=== PATIENT | male | born 1960 | race Caucasian/White ===

== ENCOUNTER 2017-03-22 13:55 | Emergency (ER) | payer SELFPAY ==
[~2017-03-22] VITALS: Ht 172.7 cm; Wt 59.7 kg
[~2017-03-22 13:55] MED LIST: LISINOPRIL10 MG PO; NOHOMEMEDS; ULTRAM50 MG PO
[2017-03-22 19:13] VITALS: BP 123/80
== END 2017-03-22 19:15 | disposition home or self-care (01) ==
LOC: EME → EDBD 13:55 → EME 19:15
DX: F10.129 Alcohol abuse with intoxication, unspecified (principal); F17.200 Nicotine dependence, unspecified, uncomplicated
CPT/HCPCS: 99281; 99285

== ENCOUNTER 2018-01-30 18:56 | Emergency (ER) | payer OTHER ==
[~2018-01-30] VITALS: Ht 170.2 cm; Wt 68.2 kg
[2018-01-30 19:41] LABS: HEMATOCRIT 46.1 % (38.0-50.0); HEMOGLOBIN 16.1 G/DL (12.5-16.6); MCH 34.2 PG (29.0-34.0); MCHC 34.9 G/DL (30.0-36.0); MCV 97.9 FL (86-99); PLATELET COUNT 280 K/uL (156-360); RBC DIS.WIDTH-CV 14.5 % (11.8-14.6); RBC DIS.WIDTH-SD 51.9 % (39-53); RED BLOOD COUNT 4.71 M/uL (4.00-5.50); WHITE BLOOD COUNT 9.5 K/uL (4.1-10.2)
[2018-01-30 19:53] LABS: CHLORIDE 107 mEq/L (99-109)
[2018-01-30 19:54] LABS: SODIUM 142 mEq/L (136-147)
[2018-01-30 19:55] LABS: GLUCOSE 75 mg/dL (70-99)
[2018-01-30 19:58] LABS: SERUM ETHYL ALCOHOL 403 mg/dL
[2018-01-30 19:59] LABS: CREATININE 0.8 mg/dL (0.6-1.3); GFR ESTIMATE (CALCULATED) > 59 mL/min/ (58.99-99999)
[2018-01-30 20:00] LABS: UREA NITROGEN (BUN) 7 mg/dL (9-23)
[2018-01-30 20:12] LABS: AMPHETAMINE NEGATIVE (500 ng/mL); BARBITURATES NEGATIVE (200 ng/mL); BENZODIAZEPINES NEGATIVE (150 ng/mL); BUPRENORPHINE NEGATIVE (10 ng/mL); COCAINE NEGATIVE (150 ng/mL); METHADONE NEGATIVE (200 ng/mL); METHAMPHETAMINE NEGATIVE (500 ng/mL); OPIATES (MORPHINE) NEGATIVE (100 ng/mL); OXYCODONE NEGATIVE (100 ng/mL); PHENCYCLIDINE NEGATIVE (25 ng/mL); PROPOXYPHENE NEGATIVE (300 ng/mL); THC CANNABINOIDS NEGATIVE (50 ng/mL); TRICYCLIC ANTIDEPRESSANTS NEGATIVE (300 ng/mL)
[2018-01-30 23:25] VITALS: BP 144/84
== END 2018-01-30 23:33 | disposition home or self-care (01) ==
LOC: EME 18:56
PROVIDERS: Emergency Medicine
DX: F10.129 Alcohol abuse with intoxication, unspecified (principal); Y90.8 Blood alcohol level of 240 mg/100 ml or more; I10 Essential (primary) hypertension; F17.200 Nicotine dependence, unspecified, uncomplicated
CPT/HCPCS: 80048; 85027; 99281; 99284; G0480